=== PATIENT | male | born 1960 | race Caucasian/White ===

== ENCOUNTER 2018-12-03 18:11 | Inpatient (IN) | payer MEDICAID, SELFPAY ==
[2018-12-03] VITALS (13 sets, daily range): BP systolic 137–169; BP diastolic 77–111; PULSE 89–103; RESP 16–35; TEMP 36.1–36.5; O2SAT 16–99; BMI 71.5; BMI 71.6; BMI 73.9
--- NOTE | 2018-12-03 18:17 | EKG12_ITS ---
Test Reason : SOB Blood Pressure : / mmHG Vent. Rate : 086 BPM Atrial Rate : 086 BPM P-R Int : 160 ms QRS Dur : 094 ms QT Int : 372 ms P-R-T Axes : 055 030 060 degrees QTc Int : 445 ms Normal sinus rhythm Normal ECG Confirmed by DEBI ROBERT, LELAND ([id number]), graphics editor MARIAJOSE REEDER ([id number] on 12/08/2018 5:06:41 PM Referred By: Amol Salamanca Confirmed By:LELAND CARRERA MD
[2018-12-03] MEDS: Albuterol 2.5 MG/3 ML VIAL.NEB. INHALATION ×3 (18:23→20:09)
[2018-12-03] MEDS: Ipratropium/Albuterol Sulfate 3 ML AMPUL.NEB INHALATION ×2 (18:23→22:55)
--- NOTE | 2018-12-03 18:26 | ED.RN ---
PT STATES THAT HE WAS D/C ON HOUR AGO FROM [facility].
--- NOTE | 2018-12-03 18:30 | RAD_ITS ---
STUDY: X-RAY CHEST REASON FOR EXAM: Male, 58 years old. COPD. Shortness of breath. TECHNIQUE: Single frontal view of the chest. COMPARISON: October 15, 2016 FINDINGS: There is a curvilinear rounded opacity obscuring the lung bases, this may be secondary to a pannus. There is obscuration of the left hemidiaphragm. There is perihilar fullness associated with indistinct pulmonary bronchovasculature. There is a right-sided Mediport in place terminating within the expected region of the superior vena cava. Normal size heart. Normal Normal visualized aortic arch and descending thoracic aorta. Normal visualized thoracic spine. Normal visualized ribs, clavicles, and shoulders. There is no demonstrated abnormality of the visualized soft tissue structures of the upper abdomen. RAD/Chest 1 View (Portable) IMPRESSION: Pulmonary venous congestion with possible associated interstitial edema. Possible left basilar consolidation. Electronically Signed: Renetta Dowling MD at 19:21 EST Tel , Service support ,
[2018-12-03 18:44] LABS: Absolute Neutrophil Count 6.2 X10^3/uL (2.0-7.7); Basophil# 0.05 X10^3/uL; Basophil% 0.5 % (0-1); Eosinophil# 0.29 X10^3/uL; Eosinophils% 2.8 % (0-5); Hematocrit 43.8 % (40-54); Hemoglobin 13.8 g/dl (13.0-16.5); Lymphocyte % 25.3 % (19-41); Mean Corp Hgb Conc 31.5 g/gl (32-36); Mean Corpuscular Hgb 29.9 pg (27.0-32.0); Mean Corpuscular Volume 94.8 fL (80-94); Monocyte# 1.12 X10^3/uL; Monocyte% 10.9 % (0-10); Neutrophil # 6.16 X10^3/uL (2.7-7.7); Neutrophil % 60.1 % (47-70); Platelet Count 277 K/mm3 (150-450); RBC Distribution Width CV 15.5 % (11.6-14.6); RBC Distribution Width SD 52.7 fl (35.1-43.9); Red Blood Count 4.62 M/mm3 (4.6-6.2); White Blood Count 10.3 K/mm3 (4.4-11.0)
[2018-12-03 18:49] LABS: POSITIVE COUNT NO; POSITIVE DIFFERENTIAL NO; POSITIVE MORPHOLOGY NO
[2018-12-03 19:05] LABS: Anion Gap 4 (5-15); BUN 14 mg/dL (7-18); BUN/Creat Ratio 19.3 RATIO (10-20); Calcium,Total 8.8 mg/dL (8.5-10.1); Chloride 102 mmol/L (98-107); Creatinine, Serum 0.72 mg/dL (0.70-1.30); EST Glomerular Filtration Rate 119 mL/min (>60); Est Glom Filt Rate - Afr Amer 144 mL/min (>60); Estimated Creatinine Clearance 99.65 ml/min; Glucose 112 mg/dL (74-106); Potassium 4.3 mmol/L (3.5-5.1); Sodium Level 137 mmol/L (136-145)
[2018-12-03 19:07] LABS: Lactic Acid 1.1 mmol/L (0.4-2.0)
[2018-12-03 19:12] LABS: Allen Test POS; Base Excess 4 mmol/L (-2 to +2); Bicarbonate 30.4 mmol/L (22-26); Blood Gas Specimen Type ART; EPAP 10; FI02 50; IPAP 20; PO2 128 mmHG (75-100); RR 20; SITE R Radial; SO2 99 % (95-99); Total Carbon Dioxide 32 mmol/L; pCO2 58.4 mmHg (35-45); pH 7.33 (7.35-7.45)
[2018-12-03 19:24] LABS: BNP,B-Type NATRIURETIC PEPTIDE 28.2 pg/mL (0-100)
--- NOTE | 2018-12-03 19:25 | HP.PCM_ITS ---
Problem List (1) supermorbid obesity Status: Chronic (2) COPD with exacerbation Status: Acute (3) DM II (diabetes mellitus, type II), controlled Status: Chronic History of Present Illness Date of Admission: 12/03/18 Chief Complaint: shortness of breath The patient is a 58 year old M with a significant history of super morbid obesity; acute COPD with 4 L of nasal cannula as needed and with prior intubation and tracheostomy and on CPAP at night; who presented with 3-week history of progressively worsening shortness of breath. Associated with his symptoms is productive cough with yellow thick sputum. The patient's was admitted at [facility] a day prior to this presentation; and discharged from [facility] the same day of this presentation. At [facility] chest x-ray was interpreted as right infrahilar infiltrate; probable left lung base infiltrates. Patient was treated on Levaquin. His last Levaquin dose was on the same day that he presented to our ER. At the emergency department chest x-ray was read as pulmonary venous congestion with possible associated interstitial edema and possible left basilar consolidation. At the our ED, Patient was treated with Zosyn and breathing treatments. Because he reported that he has adverse effect from steroids, steroids were not initiated. Past Medical History Past Medical History (Chronic Problems): Chronic Problems supermorbid obesity (Chronic) Venous insufficiency (Chronic) Chronic pain syndrome (Chronic) Panic disorder (Chronic) DM II (diabetes mellitus, type II), controlled (Chronic) Tracheomalacia (Chronic) Status post tracheal stents placement, status post tracheostomy, following at [facility] Chronic obstructive lung disease (Chronic) tracheostomy trancheal and bronchial stents chr resp failure Allergies aripiprazole [From Abilify] Allergy (Verified 12/03/18 18:20) Unknown codeine Allergy (Verified 12/03/18 18:20) Itching doxycycline Allergy (Verified 12/03/18 18:20) Unknown gabapentin [From Neurontin] Allergy (Verified 12/03/18 18:20) Unknown morphine Allergy (Verified 12/03/18 18:20) Itching sulfamethoxazole [From Bactrim] Allergy (Verified 12/03/18 18:20) Hives trimethoprim [From Bactrim] Allergy (Verified 12/03/18 18:20) Hives vancomycin Adverse Reaction (Mild, Verified 12/03/18 18:20) red man syndrome daptomycin Adverse Reaction (Verified 12/03/18 18:20) Rash linezolid [From Zyvox] Adverse Reaction (Verified 12/03/18 18:20) Hives Home Medications: Ambulatory Orders Medication Instructions Recorded Albuterol Aerosols [Ventolin 2.5 mg INHALATION Q4H PRN PRN 08/20/14 Aerosols] Albuterol Inhaler [Ventolin Hfa] 1 - 2 puff INHALATION Q6H PRN PRN 08/20/14 Docusate Sodium [Colace] 100 mg PO BID 08/20/14 Furosemide [Lasix] 100 mg PO DAILY 08/20/14 Ropinirole HCl [Requip] 1 mg PO QHS 10/08/14 Guaifenesin [Mucinex] 600 mg PO BID 04/06/15 Quetiapine Fumarate [Seroquel] 100 mg PO QHS 04/06/15 Oxycodone HCl/Acetaminophen 10 mg PO Q4H PRN PRN 10/15/16 [Percocet 10-325 mg Tablet] Butalbital/Acetaminophen 1 each PO QHS 12/03/18 [Butalbital-Acetaminophn 50-325] Surgical History: - - Placement of tracheal stents, Tracheostomy, Splenectomy, Inguinal and umbilical hernia repairs, Port-a-cath, Neck surgery. Psychiatric History: No pertinent psych hx Lives: Spouse/ Significant Other Smoking Status: Never smoker - *Family History Maternal History Items: Cancer - : Paternal History Items: Heart Disease - Father of heart attack Review of Systems Constitutional: Denies: Chills, Fever, Weight Change HEENT: Denies: Head Aches, Sinus Congestion, Sinus Drainage Cardiovascular: Denies: Chest Pain, Palpitations Respiratory: Reports: Cough, Shortness of Breath, Sputum production Gastrointestinal: Reports: Abdominal Pain - chronic. Denies: Nausea, Vomiting Genitourinary: Denies: Dysuria Musculoskeletal: Denies: Joint Pain, Joint Tenderness Skin: Denies: Rash, Wounds Neurological: Denies: Numbness, Tingling, Focal weakness Psychiatric: Reports: Anxiety. Denies: Depression, Homicidal Ideations, Suicidal Ideations Hematologic/ Lymphatic: Denies: Easy Bruising, Easy Bleeding VTE Information - Inpt Only VTE Present on Admission: No VTE Mechan Device Prophylaxis: None VTE Pharm Prophylaxis ordered?: Yes - Physical Exam General: Alert, Oriented x3, Cooperative, - - Obese HEENT: Atraumatic, PERRLA, EOMI, Normocephalic Neck: Supple, No JVD, Negative Carotid Bruits Lungs: Diminished - Likely secondary to body habitus Cardiovascular: Regular rate, No murmurs Abdomen: Soft, Non Tender, Obese, - - Dminished, likley secondary to body habitus Extremities: No edema, Capillary Refill Less than 3 Seconds Skin: No rashes, No breakdown Musculoskeletal: No Tenderness to Palpation of Joints or Extremities Neurological: Neuro grossly intact Psych/Mental Status: Anxious Vital Signs Temp Pulse Resp BP Pulse Ox 97.7 F L 98 20 H 169/92 H 16 12/03/18 18:16 12/03/18 19:13 12/03/18 19:13 12/03/18 19:13 12/03/18 19:13 Oxygen Flow Rate (L/min) 6 Oxygen Delivery Method Bi-pap Weight: 195.045 kg Body Mass Index (BMI) 71.5 Finger Stick Blood Glucose 88 Microbiology Past 72 Hours 12/03/18 18:40 Influenza Types A,B Direct FA (VIBHA) - Final Mucosa - Nasopharyngeal Laboratory Tests Past 24 Hrs 12/03/18 12/03/18 12/03/18 18:32 18:32 18:32 WBC 10.3 RBC 4.62 Hgb 13.8 Hct 43.8 MCV 94.8 H MCH 29.9 MCHC 31.5 L RDW 15.5 H RDW Differential 52.7 H Plt Count 277 MPV 10.0 Immature Gran % (Auto) 0.400 Neut % (Auto) 60.1 Lymph % (Auto) 25.3 [place] % (Auto) 10.9 H Eos % (Auto) 2.8 Baso % (Auto) 0.5 Absolute Neuts (auto) 6.2 Absolute Lymphs (auto) 2.60 Total Counted Not Reportable Specimen Type Sample Site pH Bicarbonate Actual POC Total CO2 Base Excess O2 Saturation O2 % ABG pCO2 ABG pO2 Porter Test Respiration Rate O2 Delivery Device EPAP IPAP Blood Gas Notified Whom Sodium 137 Potassium 4.3 Chloride 102 Carbon Dioxide 31.0 Anion Gap 4 L BUN 14 Creatinine 0.72 Estim Creat Clear Calc 99.65 Est GFR (MDRD) Af Amer 144 Est GFR (MDRD) Non-Af 119 BUN/Creatinine Ratio 19.3 Glucose 112 H Lactic Acid 1.1 Calcium 8.8 Troponin I < 0.015 B-Natriuretic Peptide 12/03/18 12/03/18 18:32 19:07 WBC RBC Hgb Hct MCV MCH MCHC RDW RDW Differential Plt Count MPV Immature Gran % (Auto) Neut % (Auto) Lymph % (Auto) [place] % (Auto) Eos % (Auto) Baso % (Auto) Absolute Neuts (auto) Absolute Lymphs (auto) Total Counted Specimen Type ART Sample Site R Radial pH 7.33 L Bicarbonate Actual 30.4 H POC Total CO2 32 Base Excess 4 H O2 Saturation 99 O2 % 50 ABG pCO2 58.4 H ABG pO2 128 H Porter Test POS Respiration Rate 20 O2 Delivery Device Bi / C PAP EPAP 10 IPAP 20 Blood Gas Notified Whom ED MD Sodium Potassium Chloride Carbon Dioxide Anion Gap BUN Creatinine Estim Creat Clear Calc Est GFR (MDRD) Af Amer Est GFR (MDRD) Non-Af BUN/Creatinine Ratio Glucose Lactic Acid Calcium Troponin I B-Natriuretic Peptide 28.2 Assessment/Plan All Active Problems COPD with exacerbation (Acute) Acute and chronic respiratory failure ([id number]) (Acute) Foreign body with infection (Resolved) The patient is a 58 year old M with a significant history of super morbid obesity; acute COPD with 4 L of nasal cannula as needed and with prior intubation and tracheostomy who presented with 3-week history of progressively worsening shortness of breath; and who was discharged from outside hospital after being treated for pneumonia presenting with persistence shortness of breath consistent with likely acute COPD exacerbation and probable community- acquired pneumonia. Acute COPD exacerbation CXR is difficult to interpret because of body habitus. Read by radiologist as pulmonary venous congestion with possible associated interstitial edema; possible left basilar consolidation. Reviewed of records from [facility] shows right infrahilar infiltrate; probable left lung base infiltrates. Scheduled DuoNeb Albuterol as needed Patient declines Solu-Medrol because of reported swelling of his abdomen with steroids. Ceftriaxone and azithromycin ordered. Placed on BiPAP at emergency department. BiPAP continued for now. Also continue BiPAP nightly and as needed. Mucinex ordered Monitor BMP and CBC Probable community-acquired pneumonia. Ceftriaxone and azithromycin as above. Streptococcal antigen and Legionella antigen ordered. MRSA nasal screen. Sleep apnea On home CPAP. Continue BiPAP PRN and nightly. History of migraine Fioricet continued Restless Leg syndrome Requip continued Insomnia Seroquel continued Chronic abdominal pain Oxycodone as needed; and Tylenol as needed continued DVT prophylaxis Because of body habitus we will order Lovenox 40 mg twice daily. Code Visit OBSV E&M: 42091 Initial observation care L3
--- NOTE | 2018-12-03 19:48 | ED.DCSUM_ITS ---
- ER Visit Summary Date of Service: 12/03/18 Chief Complaint: [Shortness of breath] History of Present Illness: The patient is a 58 M [no presents the emergency department complaint of shortness of breath that is been going on for several weeks.. Patient apparently was seen at [facility] and admitted last evening after being diagnosed with pneumonia. Patient states that they discharged him this morning however he did not feel he was ready to go. Patient states that he told him that he is still not feeling well. On arrival patient complains of shortness of breath. He describes chest discomfort. Patient's been coughing and at times sputum that is been yellow in color patient has had fever at home. As well as sweats. Patient has history of COPD and normally is on 4 L home O2. Patient also has BiPAP at home. Patient states that he has had a history of tracheostomy..] Physical Examination: [HEENT-PERRLA, EOMI. Cranial nerves II through XII grossly intact. TMs clear. Mucous membranes moist. No adenopathy. Cardiovascular-regular rate and rhythm without murmur or ectopy Lungs-diminished breath sounds bilaterally. Patient has expiratory wheezes bilaterally. Patient has occasional dyspnea. Patient is tachypneic with some accessory muscle use noted. Abdomen-normoactive bowel sounds, soft, nontender, no rebound or rigidity, no peritoneal signs. Extremities-intact ?4, normal range of motion, normal pulses, atraumatic] Test Results: [EKG obtained shows sinus rhythm with a ventricular rate of 86 bpm with no acute I segment changes. CBC with differential showed a white blood cell count of 10.3, hemoglobin 13.8, hematocrit 40, placed 277. Chemistries unremarkable. Troponin is less than 0.015. Chest x-ray was read as possible left basilar consolidation.] Emergency Department Course and Treatment: [Patient was given DuoNeb aerosol as well as albuterol. Patient refused Solu-Medrol as he states he cannot take it. Patient was started on Zosyn IV. Patient had already received Levaquin today.] Patient was started on BiPAP and an ABG was obtained after proximally half an hour which showed a pH of 7.325, CO2 of 58, PaO2 of 128 bicarb of 30 and O2 saturation of 99% on an FiO2 of 50%. Treatment Plan: [Admit.] Disposition: [Admit for IV antibiotics and management of respiratory symptoms.] Impression: [Community acquired pneumonia COPD exacerbation Respiratory failure] This note was generated with [employer] dictation software. It may contain incorrect words, spelling, and punctuation that were not noted in review of the chart prior to signing ED Disposition - Plan for ED Patient: Referrals: [facility] Doctor,Out of [Primary Care Provider] -
[2018-12-03] MEDS: oxyCODONE 5 MG Tablet 10 MG PO (21:48)
[2018-12-03] MEDS: Acetaminophen/Butalbital/Caffe 1 Tablet PO (21:49)
[2018-12-03] MEDS: Enoxaparin 40 MG/0.4 ML Syringe SC (21:49)
[2018-12-03] MEDS: guaiFENesin 1,200 MG Tablet 1200 MG PO (21:49)
[2018-12-03 22:27] LABS: M R Staph aureus DNA By PCR Negative (Negative); Probe Check PASS; Specimen Processing Control PASS
[2018-12-03] MEDS: Pramipexole Di-HCl 0.5 MG Tablet PO (23:20)
[2018-12-03] MEDS: QUEtiapine 100 MG Tablet PO (23:20)
[2018-12-04] VITALS (7 sets, daily range): BP systolic 99–135; BP diastolic 48–91; PULSE 82–89; RESP 18–20; TEMP 36.2–37.2; O2SAT 92–97
[2018-12-04] MEDS: oxyCODONE 5 MG Tablet 10 MG PO ×4 (02:57→21:30)
[2018-12-04] MEDS: Acetaminophen 325 MG Tablet 650 MG PO (02:57)
[2018-12-04] MEDS: Furosemide 40 MG Tablet 100 MG PO (05:54)
[2018-12-04] MEDS: 0.9% NaCl VAD Flush 10 ML IV ×5 (05:54→23:25)
[2018-12-04 06:18] LABS: Absolute Lymphocyte Count 3.76 X10^3/ul (0.83-4.51); Absolute Neutrophil Count 6.2 X10^3/uL (2.0-7.7); Basophil# 0.04 X10^3/uL; Basophil% 0.3 % (0-1); Eosinophil# 0.41 X10^3/uL; Eosinophils% 3.4 % (0-5); Hematocrit 38.4 % (40-54); Hemoglobin 11.9 g/dl (13.0-16.5); Lymphocyte # 3.76 X10^3/ul (4.0); Lymphocyte % 31.5 % (19-41); Mean Corpuscular Hgb 29.8 pg (27.0-32.0); Mean Corpuscular Volume 96.2 fL (80-94); Mean Platelet Vol. 10.5 fl (6.2-12.0); Monocyte# 1.49 X10^3/uL; Monocyte% 12.5 % (0-10); Neutrophil # 6.18 X10^3/uL (2.7-7.7); Platelet Count 249 K/mm3 (150-450); RBC Distribution Width CV 15.7 % (11.6-14.6); RBC Distribution Width SD 53.3 fl (35.1-43.9); Red Blood Count 3.99 M/mm3 (4.6-6.2); White Blood Count 11.9 K/mm3 (4.4-11.0)
[2018-12-04 06:20] LABS: POSITIVE COUNT NO; POSITIVE DIFFERENTIAL NO; POSITIVE MORPHOLOGY NO
[2018-12-04] MEDS: Ipratropium/Albuterol Sulfate 3 ML AMPUL.NEB INHALATION (07:19)
--- NOTE | 2018-12-04 08:35 | PN_ITS ---
Progress Note Patient was seen and examined. Admitted in the early hours of this morning. Complains of shortness of breath. Denies any fever or chills or chest pain or dizziness or palpitations. Complains of redness of the anterior abdominal wall. Believes this is what happens anytime he started on steroids. Admits to worsening migraine headaches. Vitals appears stable, on 4 L of oxygen at home, currently on 4-5 L of oxygen Diuresed more than 3 L since admission, on Lasix. Labs reviewed, slight increase in leukocytosis, unremarkable BMP, MRSA PCR is negative, respiratory panel is negative Sputum cultures growing gram-positive organisms preliminary Blood cultures are pending Review of records from [facility] show that patient was admitted to the hospital on 12/02/18 with complaints of not having his port flush for 5 months. He had accompanied his friend to the emergency department and was seen in the emergency department he mentioned that he was not feeling well the last 3 weeks and over the last week he felt like he had a fever. He admits to shaking and a productive cough productive of yellowish sputum. Workup had revealed leukocytosis as well as an infiltrate on chest x-ray and patient was admitted and treated for pneumonia. Of note is his influenza screen was negative. Discharged later in the same day to continue on oral Levaquin. He was told on discharge to be careful about his increased doses of Percocet which he takes for his chronic pain syndrome. Plan: Will DC isolation Continue on Levaquin, Lasix, breathing treatments, use of incentive spirometer Encourage use of CPAP PT and OT to evaluate and treat CHF protocol
[2018-12-04] MEDS: Ondansetron 4 MG/2 ML Vial IV ×2 (08:38→23:25)
[2018-12-04] MEDS: Enoxaparin 40 MG/0.4 ML Syringe SC ×2 (09:15→21:30)
[2018-12-04] MEDS: guaiFENesin 1,200 MG Tablet 1200 MG PO ×2 (09:16→21:30)
[2018-12-04] MEDS: Acetaminophen/Butalbital/Caffe 1 Tablet PO (12:19)
--- NOTE | 2018-12-04 13:01 | CASEMGMT ---
Addendum entered by Anatoly Mcpherson 12/04/18 14:19: Call to Estefani Marshall direct care staffer. PH FX -Per Joanna, pt's daughter is being certified to be aide through [employer]. No services in home yet. -Call to [employer] . message left requesting information if pt is receiving any skilled or nonskilled services. Call back information given. Shruthi WRIGHT RN ACM Original Note: LAWRENCE LEE Assessment Presentation: COPD exacerbation, recent discharge from [facility]. Attempted to speak with pt x 2 today. Pt is resting with Bipap and unable to participate in assessment at this time. Called to daughter Tamela, listed as POA. Daughter was able to answer questions re: pharmacy, oxygen PCP: Dr. Mascorro Preferred Pharmacy: [facility], entered as preferred pharmacy Insurance: Medicaid Prescription Benefit: yes LNOK: ELYSSA Marquez (copy not on file, but RN CM spoke with daughter who stated pt has papers in his home) Living Arrangements: Pt lives in apartment. Ex assists with bathing and dressing. Pt ambulated independently with PT. Transportation: Pt drives. DME: Called to verify- Home oxygen through [facility] . Script is for 4L continuous, concentrator, portability and CPAP @ night, shower chair, grab bars. Uses scooter in stores. DC PLAN: anticipate pt will return home with family assist.
--- NOTE | 2018-12-04 14:59 | PCM.PN.HOSP ---
Subjective: Patient was seen and examined. Complains of shortness of breath. Denies any fever or chills or chest pain or dizziness or palpitations. Complains of redness of the anterior abdominal wall. Believes this is what happens anytime he started on steroids. Admits to worsening migraine headaches. Vitals/I&O's: Vital Signs Temp Pulse Resp BP Pulse Ox 97.1 F L 87 20 H 122/82 H 92 12/04/18 09:15 12/04/18 09:15 12/04/18 09:15 12/04/18 09:15 12/04/18 09:15 Oxygen Flow Rate (L/min) 4 Oxygen Delivery Method Nasal Cannula Weight: 201.6 kg Body Mass Index (BMI) 73.9 Finger Stick Blood Glucose 88 Intake and Output for Last 24 Hours 12/02/18 12/03/18 12/04/18 23:59 23:59 23:59 Intake Total 240 / 240 875 / 875 Output Total 3050 / 3050 Balance 240 / 240 -2175 / -2175 General: Alert, Oriented x3, Cooperative, - - Mild respiratory distress, on 5 L of oxygen, morbidly obese HEENT: Atraumatic, PERRLA, EOMI, Normocephalic Oral: Moist Mucosa Neck: Supple Lungs: Clear to auscultation, Normal air movement Cardiovascular: Regular rate, Regular Rhythm, Normal S1, Normal S2, No murmurs Abdomen: Bowel Sounds Present, Soft, Non Tender, Distended, Obese, - - Moderate erythema over the anterior abdominal wall, candidal intertrigo of the abdominal wall folds Extremities: Edema - Bipedal edema +2 Skin: - - cellulitis of the anterior abdominal wall Musculoskeletal: No Tenderness to Palpation of Joints or Extremities Lymphatic: No Cervical, Supraclavicular, or Inguinal Adenopathy Neurological: Cranial nerves II-XII grossly intact, Neuro grossly intact Psych/Mental Status: Normal Affect, Appropriate Microbiology Past 72 Hours 12/03/18 22:04 Sputum, Expectorated/Coughed Gram Stain - Final 12/03/18 22:04 Sputum, Expectorated/Coughed Respiratory Culture - Preliminary Gram positive organism 12/03/18 18:40 Mucosa - Nasopharyngeal Respiratory Panel (PCR) - Final 12/04/18 03:03 Urine, Random Legionella Antigen - Final 12/04/18 03:03 Urine, Random Streptococcus pneumoniae Antigen (M - Final 12/03/18 18:40 Mucosa - Nasopharyngeal Influenza Types A,B Direct FA (VIBHA) - Final Laboratory Results 12/03/18 18:32: WBC 10.3, RBC 4.62, Hgb 13.8, Hct 43.8, MCV 94.8 H, MCH 29.9, MCHC 31.5 L, RDW 15.5 H, RDW Differential 52.7 H, Plt Count 277, MPV 10.0, Immature Gran % (Auto) 0.400, Neut % (Auto) 60.1, Lymph % (Auto) 25.3, [place] % (Auto) 10.9 H, Eos % (Auto) 2.8, Baso % (Auto) 0.5, Absolute Neuts (auto) 6.2, Absolute Lymphs (auto) 2.60, Total Counted Not Reportable 12/03/18 18:32: Sodium 137, Potassium 4.3, Chloride 102, Carbon Dioxide 31.0, Anion Gap 4 L, BUN 14, Creatinine 0.72, Estim Creat Clear Calc 99.65, Est GFR (MDRD) Af Amer 144, Est GFR (MDRD) Non-Af 119, BUN/Creatinine Ratio 19.3, Glucose 112 H, Calcium 8.8, Troponin I < 0.015 12/03/18 18:32: Lactic Acid 1.1 12/03/18 18:32: B-Natriuretic Peptide 28.2 12/03/18 19:07: Specimen Type ART, Sample Site R Radial, pH 7.33 L, Bicarbonate Actual 30.4 H, POC Total CO2 32, Base Excess 4 H, O2 Saturation 99, O2 % 50, ABG pCO2 58.4 H, ABG pO2 128 H, Porter Test POS, Respiration Rate 20, O2 Delivery Device Bi / C PAP, EPAP 10, IPAP 20, Blood Gas Notified Whom ED 12/03/18 21:00: MRSA (PCR) Negative 12/04/18 05:30: WBC 11.9 H, RBC 3.99 L, Hgb 11.9 L, Hct 38.4 L, MCV 96.2 H, MCH 29.8, MCHC 31.0 L, RDW 15.7 H, RDW Differential 53.3 H, Plt Count 249, MPV 10.5, Immature Gran % (Auto) 0.300, Neut % (Auto) 52.0, Lymph % (Auto) 31.5, [place] % (Auto) 12.5 H, Eos % (Auto) 3.4, Baso % (Auto) 0.3, Absolute Neuts (auto) 6.2, Absolute Lymphs (auto) 3.76, Total Counted Not Reportable Current Medications Acetaminophen/Butalbital/Caffeine (Fioricet) 1 tablet PO BID PRN PRN Reason: HEADACHE Last Admin: 12/04/18 12:19 Dose: 1 tablet Albuterol Sulfate (Ventolin Aerosols) 2.5 mg INHALATION Q2H PRN PRN PRN Reason: SHORTNESS OF BREATH Albuterol/Ipratropium (Duoneb) 3 ml INHALATION Q4H.RT [facility] Last Admin: 12/04/18 11:15 Dose: Not Given Docusate Sodium (Colace) 100 mg PO BID [facility] Last Admin: 12/04/18 09:16 Dose: Not Given Enoxaparin Sodium (Lovenox) 40 mg SC BID [facility] Last Admin: 12/04/18 09:15 Dose: 40 mg Furosemide (Lasix) 100 mg PO DAILY [facility] Last Admin: 12/04/18 05:54 Dose: 100 mg Guaifenesin (Mucinex) 1,200 mg PO BID [facility] Last Admin: 12/04/18 09:16 Dose: 1,200 mg Heparin Sodium (Beef Lung) () 50 units IV UD PRN PRN Reason: HEPARIN FLUSH Sodium Chloride () 250 mls @ 15 mls/hr IV .[id number] PRN PRN Reason: SALINE FLUSH Levofloxacin (Levaquin Tablet) 750 mg PO DAILY@0600 [facility] Stop: 12/08/18 06:01 Nystatin (Mycostatin Powder) 1 applic TOPICAL TID [facility]; Protocol Ondansetron HCl (Zofran) 4 mg IV Q8H PRN PRN PRN Reason: Nausea Last Admin: 12/04/18 08:38 Dose: 4 mg Oxycodone HCl (Oxyir) 10 mg PO Q4H PRN PRN PRN Reason: PAIN Last Admin: 12/04/18 06:55 Dose: 10 mg Pramipexole Dihydrochloride (Mirapex) 0.5 mg PO QHS [facility] Last Admin: 12/03/18 23:20 Dose: 0.5 mg Quetiapine Fumarate (Seroquel) 100 mg PO QHS [facility] Last Admin: 12/03/18 23:20 Dose: 100 mg Sodium Chloride () 10 ml IV UD PRN PRN Reason: VAD FLUSH Last Admin: 12/04/18 08:38 Dose: 10 ml Sodium Chloride (Orange Nasal [place]) 1 spray NASAL BID PRN PRN PRN Reason: NASAL DRYNESS Medical Necessity - Tobacco Use Smoking Status: Never smoker Tobacco Use: Non-smoker Assessment/Plan All Active Problems COPD with exacerbation (Acute) Acute and chronic respiratory failure ([id number]) (Acute) Foreign body with infection (Resolved) 88-year-old male with past medical history of super morbid obesity, COPD with chronic hypoxemia, on 4 L of oxygen at home, chronic pain syndrome who was recently admitted and discharged on 11/14 from [facility] Review of records from [facility] show that patient was admitted to the hospital on 12/02/18 with complaints of not having his port flush for 5 months. He had accompanied his friend to the emergency department and was seen in the emergency department he mentioned that he was not feeling well the last 3 weeks and over the last week he felt like he had a fever. He admits to shaking and a productive cough productive of yellowish sputum. Workup had revealed leukocytosis as well as an infiltrate on chest x-ray and patient was admitted and treated for pneumonia. Of note is his influenza screen was negative. Discharged later in the same day to continue on oral Levaquin. He was told on discharge to be careful about his increased doses of Percocet which he takes for his chronic pain syndrome. 1. Acute on chronic respiratory failure secondary to COPD exacerbation/recently diagnosed community-acquired pneumonia Patient complains of adverse skin reaction to steroids Will continue on breathing treatments, oral Levaquin for 5 more days, use of incentive spirometer, will continue to wean off oxygen back to his baseline 2. MARICEL, on CPAP, will continue 3. History of migraine, on Fioricet, will continue 4. Restless leg syndrome/insomnia on Seroquel and Requip 5. Super morbidly obese, BMI 74 6. Chronic pain syndrome, on oxycodone as needed 7. DVT prophylaxis with Lovenox 40 mg twice daily Code Visit Inpatient E&M: 64162 Subs Hosp L2
--- NOTE | 2018-12-04 15:05 | PN_ITS ---
Subjective: Patient was seen and examined. Complains of shortness of breath. Denies any fever or chills or chest pain or dizziness or palpitations. Complains of redness of the anterior abdominal wall. Believes this is what happens anytime he started on steroids. Admits to worsening migraine headaches. Vitals/I&O's: Vital Signs Temp Pulse Resp BP Pulse Ox 97.1 F L 87 20 H 122/82 H 92 12/04/18 09:15 12/04/18 09:15 12/04/18 09:15 12/04/18 09:15 12/04/18 09:15 Oxygen Flow Rate (L/min) 4 Oxygen Delivery Method Nasal Cannula Weight: 201.6 kg Body Mass Index (BMI) 73.9 Finger Stick Blood Glucose 88 Intake and Output for Last 24 Hours 12/02/18 12/03/18 12/04/18 23:59 23:59 23:59 Intake Total 240 / 240 875 / 875 Output Total 3050 / 3050 Balance 240 / 240 -2175 / -2175 General: Alert, Oriented x3, Cooperative, - - Mild respiratory distress, on 5 L of oxygen, morbidly obese HEENT: Atraumatic, PERRLA, EOMI, Normocephalic Oral: Moist Mucosa Neck: Supple Lungs: Clear to auscultation, Normal air movement Cardiovascular: Regular rate, Regular Rhythm, Normal S1, Normal S2, No murmurs Abdomen: Bowel Sounds Present, Soft, Non Tender, Distended, Obese, - - Moderate erythema over the anterior abdominal wall, candidal intertrigo of the abdominal wall folds Extremities: Edema - Bipedal edema +2 Skin: - - cellulitis of the anterior abdominal wall Musculoskeletal: No Tenderness to Palpation of Joints or Extremities Lymphatic: No Cervical, Supraclavicular, or Inguinal Adenopathy Neurological: Cranial nerves II-XII grossly intact, Neuro grossly intact Psych/Mental Status: Normal Affect, Appropriate Microbiology Past 72 Hours 12/03/18 22:04 Sputum, Expectorated/Coughed Gram Stain - Final 12/03/18 22:04 Sputum, Expectorated/Coughed Respiratory Culture - Preliminary Gram positive organism 12/03/18 18:40 Mucosa - Nasopharyngeal Respiratory Panel (PCR) - Final 12/04/18 03:03 Urine, Random Legionella Antigen - Final 12/04/18 03:03 Urine, Random Streptococcus pneumoniae Antigen (M - Final 12/03/18 18:40 Mucosa - Nasopharyngeal Influenza Types A,B Direct FA (VIBHA) - Final Laboratory Results 12/03/18 18:32: WBC 10.3, RBC 4.62, Hgb 13.8, Hct 43.8, MCV 94.8 H, MCH 29.9, MCHC 31.5 L, RDW 15.5 H, RDW Differential 52.7 H, Plt Count 277, MPV 10.0, Immature Gran % (Auto) 0.400, Neut % (Auto) 60.1, Lymph % (Auto) 25.3, [place] % (Auto) 10.9 H, Eos % (Auto) 2.8, Baso % (Auto) 0.5, Absolute Neuts (auto) 6.2, Absolute Lymphs (auto) 2.60, Total Counted Not Reportable 12/03/18 18:32: Sodium 137, Potassium 4.3, Chloride 102, Carbon Dioxide 31.0, Anion Gap 4 L, BUN 14, Creatinine 0.72, Estim Creat Clear Calc 99.65, Est GFR (MDRD) Af Amer 144, Est GFR (MDRD) Non-Af 119, BUN/Creatinine Ratio 19.3, Glucose 112 H, Calcium 8.8, Troponin I < 0.015 12/03/18 18:32: Lactic Acid 1.1 12/03/18 18:32: B-Natriuretic Peptide 28.2 12/03/18 19:07: Specimen Type ART, Sample Site R Radial, pH 7.33 L, Bicarbonate Actual 30.4 H, POC Total CO2 32, Base Excess 4 H, O2 Saturation 99, O2 % 50, ABG pCO2 58.4 H, ABG pO2 128 H, Porter Test POS, Respiration Rate 20, O2 Delivery Device Bi / C PAP, EPAP 10, IPAP 20, Blood Gas Notified Whom ED 12/03/18 21:00: MRSA (PCR) Negative 12/04/18 05:30: WBC 11.9 H, RBC 3.99 L, Hgb 11.9 L, Hct 38.4 L, MCV 96.2 H, MCH 29.8, MCHC 31.0 L, RDW 15.7 H, RDW Differential 53.3 H, Plt Count 249, MPV 10.5, Immature Gran % (Auto) 0.300, Neut % (Auto) 52.0, Lymph % (Auto) 31.5, [place] % (Auto) 12.5 H, Eos % (Auto) 3.4, Baso % (Auto) 0.3, Absolute Neuts (auto) 6.2, Absolute Lymphs (auto) 3.76, Total Counted Not Reportable Current Medications Acetaminophen/Butalbital/Caffeine (Fioricet) 1 tablet PO BID PRN PRN Reason: HEADACHE Last Admin: 12/04/18 12:19 Dose: 1 tablet Albuterol Sulfate (Ventolin Aerosols) 2.5 mg INHALATION Q2H PRN PRN PRN Reason: SHORTNESS OF BREATH Albuterol/Ipratropium (Duoneb) 3 ml INHALATION Q4H.RT [facility] Last Admin: 12/04/18 11:15 Dose: Not Given Docusate Sodium (Colace) 100 mg PO BID [facility] Last Admin: 12/04/18 09:16 Dose: Not Given Enoxaparin Sodium (Lovenox) 40 mg SC BID [facility] Last Admin: 12/04/18 09:15 Dose: 40 mg Furosemide (Lasix) 100 mg PO DAILY [facility] Last Admin: 12/04/18 05:54 Dose: 100 mg Guaifenesin (Mucinex) 1,200 mg PO BID [facility] Last Admin: 12/04/18 09:16 Dose: 1,200 mg Heparin Sodium (Beef Lung) () 50 units IV UD PRN PRN Reason: HEPARIN FLUSH Sodium Chloride () 250 mls @ 15 mls/hr IV .[id number] PRN PRN Reason: SALINE FLUSH Levofloxacin (Levaquin Tablet) 750 mg PO DAILY@0600 [facility] Stop: 12/08/18 06:01 Nystatin (Mycostatin Powder) 1 applic TOPICAL TID [facility]; Protocol Ondansetron HCl (Zofran) 4 mg IV Q8H PRN PRN PRN Reason: Nausea Last Admin: 12/04/18 08:38 Dose: 4 mg Oxycodone HCl (Oxyir) 10 mg PO Q4H PRN PRN PRN Reason: PAIN Last Admin: 12/04/18 06:55 Dose: 10 mg Pramipexole Dihydrochloride (Mirapex) 0.5 mg PO QHS [facility] Last Admin: 12/03/18 23:20 Dose: 0.5 mg Quetiapine Fumarate (Seroquel) 100 mg PO QHS [facility] Last Admin: 12/03/18 23:20 Dose: 100 mg Sodium Chloride () 10 ml IV UD PRN PRN Reason: VAD FLUSH Last Admin: 12/04/18 08:38 Dose: 10 ml Sodium Chloride ([place] Nasal [place]) 1 spray NASAL BID PRN PRN PRN Reason: NASAL DRYNESS Medical Necessity - Tobacco Use Smoking Status: Never smoker Tobacco Use: Non-smoker Assessment/Plan All Active Problems COPD with exacerbation (Acute) Acute and chronic respiratory failure ([id number]) (Acute) Foreign body with infection (Resolved) 88-year-old male with past medical history of super morbid obesity, COPD with chronic hypoxemia, on 4 L of oxygen at home, chronic pain syndrome who was recently admitted and discharged on 11/14 from [facility] Review of records from [facility] show that patient was admitted to the hospital on 12/02/18 with complaints of not having his port flush for 5 months. He had accompanied his friend to the emergency department and was seen in the emergency department he mentioned that he was not feeling well the last 3 weeks and over the last week he felt like he had a fever. He admits to shaking and a productive cough productive of yellowish sputum. Workup had revealed leukocytosis as well as an infiltrate on chest x-ray and patient was admitted and treated for pneumonia. Of note is his influenza screen was negative. Discharged later in the same day to continue on oral Levaquin. He was told on discharge to be careful about his increased doses of Percocet which he takes for his chronic pain syndrome. 1. Acute on chronic respiratory failure secondary to COPD exacerbation/recently diagnosed community-acquired pneumonia Patient complains of adverse skin reaction to steroids Will continue on breathing treatments, oral Levaquin for 5 more days, use of incentive spirometer, will continue to wean off oxygen back to his baseline 2. MARICEL, on CPAP, will continue 3. History of migraine, on Fioricet, will continue 4. Restless leg syndrome/insomnia on Seroquel and Requip 5. Super morbidly obese, BMI 74 6. Chronic pain syndrome, on oxycodone as needed 7. DVT prophylaxis with Lovenox 40 mg twice daily Code Visit Inpatient E&M: 40451 Subs Hosp L2
[2018-12-04] MEDS: Nystatin Powder 15gm Bottle 1 APPLIC TOPICAL ×2 (15:54→21:28)
[2018-12-04] MEDS: Ketorolac 30 MG/ML Syringe IV (15:55)
--- NOTE | 2018-12-04 18:01 | CHAPLAIN ---
Type of Pastoral Visit _x__ Initial Visit ___ Follow-up Visit ___ On-call Visit ___ General Patient Visit ___ Spiritual Assessment ___ Family Conference ___ Bereavement ___ Rapid Response ___ Code Blue ___ Other (describe below) Pastoral Care Referral From _x__ Patient ___ Family ___ Nurse ___ Physician ___ Gusset Ripper ___ Academic Manager ___ Other (describe below) Sacrament/Intervention ___ Active listening ___ Anointing ___ Yazdanism ___ Bereavement ___ Communion ___ Delores exploration ___ ___ Life review _x__ Prayer ___ Reconciliation ___ Sacrament of Sick _x__ Supportive presence ___ Wedding ___ Other (describe below) Pastoral Comments patient requests follow up visit tomorrow if possible as he is not feeling well today
[2018-12-04] MEDS: Pramipexole Di-HCl 0.5 MG Tablet PO (21:30)
[2018-12-04] MEDS: Acetaminophen 325 MG Tablet PO (21:30)
[2018-12-04] MEDS: QUEtiapine 100 MG Tablet PO (21:31)
[2018-12-05] MEDS: levoFLOXacin 750 MG Tablet PO (05:06)
[2018-12-05] MEDS: Nystatin Powder 15gm Bottle 1 APPLIC TOPICAL (05:06)
[2018-12-05 05:09] VITALS: BP 131/53; PULSE 81; RESP 18; TEMP 36.4; O2SAT 95
[2018-12-05] MEDS: Acetaminophen/Butalbital/Caffe 1 Tablet PO (05:14)
[2018-12-05 05:28] LABS: Absolute Lymphocyte Count 2.15 X10^3/ul (0.83-4.51); Absolute Neutrophil Count 6.9 X10^3/uL (2.0-7.7); Basophil# 0.02 X10^3/uL; Basophil% 0.2 % (0-1); Eosinophil# 0.11 X10^3/uL; Eosinophils% 1.1 % (0-5); Hematocrit 39.8 % (40-54); Lymphocyte # 2.15 X10^3/ul (4.0); Mean Corp Hgb Conc 30.2 g/gl (32-36); Mean Corpuscular Hgb 29.3 pg (27.0-32.0); Mean Corpuscular Volume 97.3 fL (80-94); Monocyte# 1.04 X10^3/uL; Monocyte% 10.2 % (0-10); Neutrophil # 6.89 X10^3/uL (2.7-7.7); Neutrophil % 67.3 % (47-70); Platelet Count 247 K/mm3 (150-450); RBC Distribution Width CV 15.6 % (11.6-14.6); RBC Distribution Width SD 54.7 fl (35.1-43.9); Red Blood Count 4.09 M/mm3 (4.6-6.2); White Blood Count 10.2 K/mm3 (4.4-11.0)
[2018-12-05 05:39] LABS: POSITIVE COUNT NO; POSITIVE DIFFERENTIAL NO; POSITIVE MORPHOLOGY NO
[2018-12-05 05:43] LABS: Anion Gap 4 (5-15); BUN 13 mg/dL (7-18); BUN/Creat Ratio 19.7 RATIO (10-20); Calcium,Total 8.4 mg/dL (8.5-10.1); Chloride 102 mmol/L (98-107); Creatinine, Serum 0.66 mg/dL (0.70-1.30); EST Glomerular Filtration Rate 133 mL/min (>60); Est Glom Filt Rate - Afr Amer 161 mL/min (>60); Estimated Creatinine Clearance 108.71 ml/min; Glucose 133 mg/dL (74-106); Potassium 4.5 mmol/L (3.5-5.1); Sodium Level 142 mmol/L (136-145)
[2018-12-05] MEDS: Ondansetron 4 MG/2 ML Vial IV (08:24)
[2018-12-05] MEDS: 0.9% NaCl VAD Flush 10 ML IV ×4 (08:25→10:52)
[2018-12-05 08:44] VITALS: PULSE 99; RESP 20; O2SAT 96
[2018-12-05] MEDS: Ipratropium/Albuterol Sulfate 3 ML AMPUL.NEB INHALATION ×2 (08:44→11:34)
[2018-12-05 08:50] VITALS: BP 137/77; PULSE 78; RESP 20; TEMP 37; O2SAT 96
[2018-12-05] MEDS: Acetaminophen 325 MG Tablet PO (08:52)
[2018-12-05] MEDS: guaiFENesin 1,200 MG Tablet 1200 MG PO (08:53)
[2018-12-05] MEDS: Docusate Sodium 100 MG Capsule PO (08:54)
[2018-12-05] MEDS: Furosemide 40 MG Tablet 100 MG PO (08:54)
[2018-12-05] MEDS: Enoxaparin 40 MG/0.4 ML Syringe SC (08:55)
--- NOTE | 2018-12-05 09:00 | NURSING ---
pt placed on high flow O2 at this time via venti mask for 15-20 minutes for headache relief.
[2018-12-05] MEDS: Pantoprazole Sodium 40 MG Tablet PO (10:09)
[2018-12-05] MEDS: oxyCODONE 5 MG Tablet 10 MG PO ×2 (10:12→14:55)
--- NOTE | 2018-12-05 10:39 | DS.PCM_ITS ---
Discharge Date and Diagnosis Date of Admission: 12/03/18 Date of Discharge: 12/05/18 - Primary Discharge Diagnosis Acute on chronic respiratory failure Acute COPD exacerbation Recent community-acquired pneumonia Cellulitis of the anterior abdomen Super morbid obesity - Secondary Discharge Diagnosis Chronic Problems supermorbid obesity (Chronic) Venous insufficiency (Chronic) Chronic pain syndrome (Chronic) Panic disorder (Chronic) DM II (diabetes mellitus, type II), controlled (Chronic) Tracheomalacia (Chronic) Status post tracheal stents placement, status post tracheostomy, following at [facility] Chronic obstructive lung disease (Chronic) tracheostomy trancheal and bronchial stents chr resp failure Hospital Course and Treatment Imaging Results: Clinical Impression(s) from Imaging Studies Chest X-Ray 12/03/18 18:30 IMPRESSION: Pulmonary venous congestion with possible associated interstitial edema. Possible left basilar consolidation. Electronically Signed: Renetta Dowling MD at 19:21 EST Tel , Service support , None Operations: None Procedures: None Summary of Care Provided: 58-year-old male with past medical history of super morbid obesity, COPD with chronic hypoxemia, on 4 L of oxygen at home, chronic pain syndrome who was recently admitted and discharged on 12/02/2018 from [facility]. Review of records from [facility] show that patient was admitted to the hospital on 12/02/18 with complaints of not having his medport flush for 5 months. He had accompanied his friend to the emergency department and was seen in the emergency department he mentioned that he was not feeling well the last 3 weeks and over the last week he felt like he had a fever. He admits to shaking and a productive cough productive of yellowish sputum. Workup had revealed leukocytosis as well as an infiltrate on chest x-ray and patient was admitted and treated for pneumonia. Of note is his influenza screen was negative. He was discharged later in the same day to continue on oral Levaquin. He was told on discharge to be careful about his increased doses of Percocet which he takes for his chronic pain syndrome. Patient was admitted to the telemetry floor, continued on his oral Lasix with good diuresis. He was also continued on his oral Levaquin. Patient complained of acute migrainous headache for which treatment with high flow oxygen and IV Toradol helped. He was continued on his home Fioricet. Patient is continued on his breathing treatments and CPAP at night. He had refused any steroids for treatment of acute COPD exacerbation as he thought that it gave him cellulitis or erythema of his lower abdomen. He was managed on breathing treatment with no steroids. He has some erythema of his lower abdomen that was improving. He also had severe candidal intertrigo for which nystatin powder was prescribed. Patient was discharged with home health care. Subjective: Recent was seen and examined. Denied any new complaints. Feels much improved. Earlier on his headache was relieved with Toradol, and Fioricet bolus-we will oxygen. He will be prescribed with parameters for migraine prophylaxis going forward. Objective: Physical exam: General: Alert, Oriented x3, Cooperative, - - Mild respiratory distress, on 5 L of oxygen, morbidly obese HEENT: Atraumatic, PERRLA, EOMI, Normocephalic Oral: Moist Mucosa Neck: Supple Lungs: Clear to auscultation, Normal air movement Cardiovascular: Regular rate, Regular Rhythm, Normal S1, Normal S2, No murmurs Abdomen: Bowel Sounds Present, Soft, Non Tender, Distended, Obese, - - Moderate erythema over the anterior abdominal wall, candidal intertrigo of the abdominal wall folds Extremities: Edema - Bipedal edema +2 Skin: - - cellulitis of the anterior abdominal wall Musculoskeletal: No Tenderness to Palpation of Joints or Extremities Lymphatic: No Cervical, Supraclavicular, or Inguinal Adenopathy Neurological: Cranial nerves II-XII grossly intact, Neuro jeannie - Physical Exam Vital Signs Temp Pulse Resp BP Pulse Ox 98.6 F 78 20 H 137/77 H 96 12/05/18 08:50 12/05/18 08:50 12/05/18 08:50 12/05/18 08:50 12/05/18 08:50 Oxygen Flow Rate (L/min) 6 Oxygen Delivery Method Nasal Cannula Weight: 201.6 kg Body Mass Index (BMI) 73.9 Finger Stick Blood Glucose 88 Intake and Output for Last 24 Hours 12/03/18 12/04/18 12/05/18 23:59 23:59 23:59 Intake Total 240 / 240 1194 / 1194 200 / 200 Output Total 4150 / 4150 225 / 225 Balance 240 / 240 -2956 / -2956 -25 / -25 Microbiology Past 72 Hours 12/03/18 22:04 Gram Stain - Final Sputum, Expectorated/Coughed Respiratory Culture - Preliminary 12/03/18 18:40 Respiratory Panel (PCR) - Final Mucosa - Nasopharyngeal 12/04/18 03:03 Legionella Antigen - Final Urine, Random 12/04/18 03:03 Streptococcus pneumoniae Antigen (M - Final Urine, Random 12/03/18 18:40 Influenza Types A,B Direct FA (VIBHA) - Final Mucosa - Nasopharyngeal Laboratory Tests Past 24 Hrs 12/05/18 12/05/18 05:18 05:18 WBC 10.2 RBC 4.09 L Hgb 12.0 L Hct 39.8 L MCV 97.3 H MCH 29.3 MCHC 30.2 L RDW 15.6 H RDW Differential 54.7 H Plt Count 247 MPV 10.0 Immature Gran % (Auto) 0.200 Neut % (Auto) 67.3 Lymph % (Auto) 21.0 [place] % (Auto) 10.2 H Eos % (Auto) 1.1 Baso % (Auto) 0.2 Absolute Neuts (auto) 6.9 Absolute Lymphs (auto) 2.15 Total Counted Not Reportable Sodium 142 Potassium 4.5 Chloride 102 Carbon Dioxide 36.0 H Anion Gap 4 L BUN 13 Creatinine 0.66 L Estim Creat Clear Calc 108.71 Est GFR (MDRD) Af Amer 161 Est GFR (MDRD) Non-Af 133 BUN/Creatinine Ratio 19.7 Glucose 133 H Calcium 8.4 L Discharge Diet: Low fat/ Low Cholesterol, 8 Cup Fluid Restriciton, 2000 mg Sodium Diet Discharge Activity: Return to Normal Activity Home Medications: Medications to take at Discharge Albuterol Aerosols [Ventolin Aerosols] 2.5 mg INHALATION Q4H PRN PRN 08/20/14 Albuterol Inhaler [Ventolin Hfa] 1 - 2 puff INHALATION Q6H PRN PRN 08/20/14 Docusate Sodium [Colace] 100 mg PO BID 08/20/14 Furosemide [Lasix] 100 mg PO DAILY 08/20/14 Ropinirole HCl [Requip] 1 mg PO QHS 10/08/14 Quetiapine Fumarate [Seroquel] 100 mg PO QHS 04/06/15 Oxycodone HCl/Acetaminophen [Percocet 10-325 mg Tablet] 10 mg PO Q4H PRN PRN 10/15/16 Butalbital/Acetaminophen [Butalbital-Acetaminophn 50-325] 1 each PO BID PRN #0 12/05/18 Guaifenesin [Mucinex] 1,200 mg PO BID #20 tablet 12/05/18 Nystatin Powder [Mycostatin Powder] 1 applic TOPICAL TID #1 bottle 12/05/18 Pantoprazole Sodium [Protonix] 40 mg PO BID #60 tablet 12/05/18 Topiramate [Topamax] 25 mg PO QHS #30 tablet 12/05/18 levoFLOXacin tablet [Levaquin tablet] 750 mg PO DAILY@0600 #5 tablet 12/05/18 Following Prescrptions Were Given to Patient: levoFLOXacin tablet [Levaquin tablet] 750 mg PO DAILY@0600 #5 tablet Topiramate [Topamax] 25 mg PO QHS #30 tablet Guaifenesin [Mucinex] 1,200 mg PO BID #20 tablet Pantoprazole Sodium [Protonix] 40 mg PO BID #60 tablet Nystatin Powder [Mycostatin Powder] 1 applic TOPICAL TID #1 bottle Primary Care Physician: Ronan Doctor,Out of [NON-STAFF] - Please follow up with your Primary Care Physician in: within 1-2 weeks of discharge Disposition: Home with Home Health Minutes spent on discharge:: 40 Patient Condition:: Stable Medical Necessity - Tobacco Use Smoking Status: Never smoker Tobacco Use: Non-smoker Meaningful Use Info Meaningful Use Diagnoses (Choose all that apply): None applicable Code Visit Inpatient E&M: 66519 Disch Hosp
--- NOTE | 2018-12-05 10:39 | DCINST_ITS ---
- Discharge Diagnoses Reason(s) for Visit for Discharge Instructions: Shortness of breath You will use the following diet at home:: Calorie/Carbohydrate Controlled (specify 1200, 1400, etc), Cardiac Your food should be the consistency of: Regular Your liquids should be the consistency of: Regular/Thin Discharge Activity: Return to Normal Activity Additional Instructions: Continue to use your nebuliser and breathing treatments every 4 hours as needed for shortness of breath. Continue antibiotics. Take note of your new medication for ongoing prophylaxis. Follow-up with your primary care doctor within 1-2 weeks. Continue to follow a low-salt, low-fat diet with fluid restriction less than 1500mls.Weigh yourself daily. You will be seen by the home health team. Allergies/Adverse Reactions: Allergies aripiprazole [From Abilify] Allergy (Verified 12/03/18 18:20) Unknown codeine Allergy (Verified 12/03/18 18:20) Itching doxycycline Allergy (Verified 12/03/18 18:20) Unknown gabapentin [From Neurontin] Allergy (Verified 12/03/18 18:20) Unknown morphine Allergy (Verified 12/03/18 18:20) Itching sulfamethoxazole [From Bactrim] Allergy (Verified 12/03/18 18:20) Hives trimethoprim [From Bactrim] Allergy (Verified 12/03/18 18:20) Hives vancomycin Adverse Reaction (Mild, Verified 12/03/18 18:20) red man syndrome daptomycin Adverse Reaction (Verified 12/03/18 18:20) Rash linezolid [From Zyvox] Adverse Reaction (Verified 12/03/18 18:20) Hives Medications to take at Discharge Albuterol Aerosols [Ventolin Aerosols] 2.5 mg INHALATION Q4H PRN PRN 08/20/14 Albuterol Inhaler [Ventolin Hfa] 1 - 2 puff INHALATION Q6H PRN PRN 08/20/14 Docusate Sodium [Colace] 100 mg PO BID 08/20/14 Furosemide [Lasix] 100 mg PO DAILY 08/20/14 Ropinirole HCl [Requip] 1 mg PO QHS 10/08/14 Quetiapine Fumarate [Seroquel] 100 mg PO QHS 04/06/15 Oxycodone HCl/Acetaminophen [Percocet 10-325 mg Tablet] 10 mg PO Q4H PRN PRN 10/15/16 Butalbital/Acetaminophen [Butalbital-Acetaminophn 50-325] 1 each PO BID PRN #0 12/05/18 Guaifenesin [Mucinex] 1,200 mg PO BID #20 tablet 12/05/18 Nystatin Powder [Mycostatin Powder] 1 applic TOPICAL TID #1 bottle 12/05/18 Pantoprazole Sodium [Protonix] 40 mg PO BID #60 tablet 12/05/18 Topiramate [Topamax] 25 mg PO QHS #30 tablet 12/05/18 levoFLOXacin tablet [Levaquin tablet] 750 mg PO DAILY@0600 #5 tablet 12/05/18 The following prescriptions were given: levoFLOXacin tablet [Levaquin tablet] 750 mg PO DAILY@0600 #5 tablet Topiramate [Topamax] 25 mg PO QHS #30 tablet Guaifenesin [Mucinex] 1,200 mg PO BID #20 tablet Pantoprazole Sodium [Protonix] 40 mg PO BID #60 tablet Nystatin Powder [Mycostatin Powder] 1 applic TOPICAL TID #1 bottle Primary Care Physician: Ronan Doctor,Out of [NON-STAFF] - Please follow up with your Primary Care Physician in: within 1-2 weeks of discharge Test Results: Test results from this visit will be discussed in further detail at your follow- up appointment, if applicable. Proposed Discharge Date: 12/05/18
[2018-12-05] MEDS: Ketorolac 30 MG/ML Syringe IV (10:46)
--- NOTE | 2018-12-05 11:25 | CHAPLAIN ---
Type of Pastoral Visit ___ Initial Visit _x__ Follow-up Visit ___ On-call Visit ___ General Patient Visit ___ Spiritual Assessment ___ Family Conference ___ Bereavement ___ Rapid Response ___ Code Blue ___ Other (describe below) Pastoral Care Referral From _x__ Patient ___ Family ___ Nurse ___ Physician ___ Manager Information ___ Economics Professor ___ Other (describe below) Sacrament/Intervention _x__ Active listening ___ Anointing ___ Bahai ___ Bereavement ___ Communion _x__ Delores exploration ___ _x__ Life review _x__ Prayer ___ Reconciliation ___ Sacrament of Sick _x__ Supportive presence ___ Wedding ___ Other (describe below) Pastoral Comments patient freely talks about his health and his feelings about a variety of life topics including delores and family issues; pt requests prayer support
[2018-12-05 11:34] VITALS: PULSE 98; RESP 20
--- NOTE | 2018-12-05 12:32 | CASEMGMT ---
RN ROSA Note: Intro role of CM to patient and discussed physician recommendation for Home Health. Pt's first choice is [facility] in [place]. LAWRENCE LEE called to Tori @ [facility], referral faxed. Shruthi WRIGHT RN ACM
[2018-12-05 14:50] VITALS: BP 153/81; PULSE 87; RESP 18; TEMP 36.6; O2SAT 95
--- NOTE | 2018-12-05 16:19 | CASEMGMT ---
Addendum entered by Anatoly Mcpherson 12/05/18 16:40: LAWRENCE LEE called to various agencies ([place], [facility], [facility]-verified they could not staff next week either, [facility], [facility]. None of these can staff. LAWRENCE LEE called to patient at home to let him know. Pt is ambulatory, and daughter can assist with ADL needs. Pt was understanding and LAWRENCE LEE recommended if concerns arise, to follow up with his PCP. Pt agreed. Shruthi PUGA Original Note: LAWRENCE LEE Note. Call received from [facility] at [facility] stating they are not able to staff pt. LAWRENCE LEE let her know pt is already at home and [facility] had said on referral that they could take pt as he had been a pt of theirs previously. [facility] stated they still would not be able to open case for this pt. Shruthi KAYM
== END 2018-12-05 15:21 | disposition home or self-care (01) | DRG 140 ==
LOC: ED 18:51 → PCU 20:01 → MS2 20:08
PROVIDERS: Admitting Provider Hospitalist; Emergency Provider Emergency Medicine; Family Provider Preventive Medicine Preventive Medicine/Occupational Environmental Medicine; PCP Preventive Medicine Preventive Medicine/Occupational Environmental Medicine; Referring Provider Hospitalist; Visit Provider Internal Medicine
DX: J44.1 Chronic obstructive pulmonary disease with (acute) exacerbation (principal); J96.21 Acute and chronic respiratory failure with hypoxia; Z99.81 Dependence on supplemental oxygen; J44.0 Chronic obstructive pulmonary disease with (acute) lower respiratory infection; L03.311 Cellulitis of abdominal wall; J18.9 Pneumonia, unspecified organism; E66.01 Morbid (severe) obesity due to excess calories; Z68.45 Body mass index [BMI] 70 or greater, adult; I87.2 Venous insufficiency (chronic) (peripheral); E11.9 Type 2 diabetes mellitus without complications; G89.4 Chronic pain syndrome; F41.0 Panic disorder [episodic paroxysmal anxiety]; G25.81 Restless legs syndrome; Z79.899 Other long term (current) drug therapy; G47.00 Insomnia, unspecified; G43.909 Migraine, unspecified, not intractable, without status migrainosus; G47.33 Obstructive sleep apnea (adult) (pediatric)
CPT/HCPCS: 36415; 36591; 36600; 71045; 80048; 82803; 83605; 83880; 84484; 85025; 87040; 87070; 87077; 87205; 87449; 87633; 87641; 87804; 93005; 94002; 94640; 94667; 94668; 97110; 97162; 97166; 97802; 99282; J7050; A4216; J0696; J2405